=== PATIENT | male | born 1995 | race African-American/Black ===

== ENCOUNTER 2016-07-24 00:53 | Emergency (ER) | payer BC ==
[~2016-07-24] VITALS: Ht 185.4 cm; Wt 85.0 kg
[2016-07-24 00:56] VITALS: BP 140/77; PULSE 81; RESP 14; TEMP 98; O2SAT 97
--- NOTE | 2016-07-24 01:08 | PD ---
HPI Chief Complaint: Skin Problem Time Seen by Provider: 01:08 Travel History International Travel<30 days: No Contact w/Intl Traveler<30days: No Traveled to known affect area: No History of Present Illness HPI 21-year-old male presents to emergency department for evaluation of a pruritic rash on his trunk and itching on his neck and extremities. 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 He is uncertain if this is because of that but it is the only thing that has changed. He denies any recent illnesses, fever, chills. No chest pain or tightness. No difficulty breathing. No sensation of oral swelling. He has not taken anything to help with the symptoms. He has no other symptoms to report. [facility] Past Medical History Medical History: Denies Significant Hx Immunizations Current: Yes Tetanus Vaccination: Unknown Influenza Vaccination: No Past Surgical History Surgical History: No Previous Surgery Social History Alcohol Use: No Tobacco Use: No Substance Use: No Allergies-Medications (Allergen,Severity, Reaction): Coded Allergies: No Known Allergies (Unverified , 07/24/16) Reported Meds & Prescriptions Reported Meds & Active Scripts Active No Active Prescriptions or Reported Medications Review of Systems Except as stated in HPI: all other systems reviewed are Neg Physical Exam Narrative GENERAL: Well-nourished, well-developed male patient in no acute distress SKIN: Focused skin assessment warm/dry. Confluent urticarial rash on the left lateral trunk. No pustular or vesicular eruptions noted. HEAD: Normocephalic. EYES: No scleral icterus. No injection or drainage. ENT: Mucosa pink and moist. No erythema or exudates. No uvular edema. No uvular , palatal, or tonsillar deviation. Airway patent. Nasal turbinates appear normal without nasal blood, purulent drainage or septal hematoma. No oral swelling NECK: Supple, trachea midline. No JVD or lymphadenopathy. No stridor CARDIOVASCULAR: Regular rate and rhythm without murmurs, gallops, or rubs. RESPIRATORY: Breath sounds equal bilaterally. No accessory muscle use. GASTROINTESTINAL: Abdomen soft, non-tender, nondistended. MUSCULOSKELETAL: No cyanosis, or edema. BACK: Nontender without obvious deformity. No CVA tenderness. Data Data Last Documented VS Vital Signs Date Time Temp Pulse Resp B/P Pulse Ox O2 Delivery O2 Flow Rate FiO2 07/24/16 00:56 98.0 81 14 140/77 97 Room Air Orders Diphenhydramine (Benadryl) (07/24/16 01:15) Dexamethasone Inj (Decadron Inj) (07/24/16 01:15) Famotidine (Pepcid) (07/24/16 01:15) MDM Medical Decision Making Medical Screen Exam Complete: Yes Emergency Medical Condition: Yes Medical Record Reviewed: Yes Differential Diagnosis Urticaria versus contact dermatitis versus psoriasis versus insect bites versus allergic reaction Narrative Course 21-year-old male presents to the emergency department for evaluation. Patient appears without distress. He does have some fluid urticarial-like rash on the left trunk otherwise rash is not generalized. He is given Benadryl and Decadron and Zantac here in the emergency department. He is encouraged to continue antihistamine and to follow-up with a primary care provider. He agrees to return immediately with any acute worsening of symptoms. Diagnosis Primary Impression: Pruritus Additional Impression: Urticaria Referrals: [facility] Primary Care Physician Patient Instructions: General Instructions, Urticaria (ED) Additional Instructions: Follow-up with a primary care provider Benadryl or other antihistamine [id number] as directed on package as needed for itching Return immediately to the emergency department with any acute worsening of symptoms Med/Other Pt SpecificInfo: No Change to Meds Scripts No Active Prescriptions or Reported Meds Disposition: 01 DISCHARGE HOME Condition: Stable [place] July 24, 2016 01:08
[2016-07-24] MEDS ORDERED: DEXAMETHASONE SOD PHOS 20 MG/5 ML VIAL IM ONE (01:15)
[2016-07-24] MEDS ORDERED: FAMOTIDINE 20 MG TAB PO ONE (01:15)
[2016-07-24] MEDS ORDERED: diphenhydrAMINE HCL 25 MG CAP PO ONE (01:15)
== END 2016-07-24 02:16 | disposition home or self-care (01) ==
LOC: NEPK 00:53
DX: L29.9 Pruritus, unspecified (principal); L50.9 Urticaria, unspecified
CPT/HCPCS: 96372; 99283; J1100